=== PATIENT | male | born 1960 | race African-American/Black ===

== ENCOUNTER 2017-01-15 11:00 | Observation (INO) ==
[2017-01-15] MEDS ORDERED: Nitroglycerin 0.4 MG TAB.SUBL SL ONE (11:09)
[2017-01-15] MEDS ORDERED: Aspirin 81 MG TAB.CHEW PO ONE (11:09)
[2017-01-15 11:27] LABS: Basophils % 0.6 %; Eosinophils # 0.1 K/mcL (0.0-0.6); Eosinophils % 2.9 %; Hematocrit 46.3 % (37.5-50.1); Hemoglobin 16.1 g/dL (12.9-16.9); Lymphocytes # 1.8 K/mcL (0.6-4.6); Lymphocytes % 56.7 %; Mean Corpuscular HGB Conc 34.8 g/dL (31.6-35.5); Mean Corpuscular Hemoglobin 30.3 pg (28.0-33.3); Mean Platelet Volume 10.7 fL (9.4-12.4); Monocytes # 0.4 K/mcL (0.0-1.3); Monocytes % 11.2 %; Neutrophils # 0.9 K/mcL (1.6-8.9); Platelet Count 196 K/mcL (140-400); Red Blood Count 5.32 M/mcL (4.19-5.50); Red Cell Distribution Width 13.5 % (11.5-14.5); Segmented Neutrophils % 28.6 %
[2017-01-15 11:40] LABS: BUN/Creatinine Ratio 12 (6-26); Blood Urea Nitrogen 12 mg/dL (8-26); Calcium 9.4 mg/dL (8.6-10.8); Carbon Dioxide 25 mEq/L (19-29); Chloride 106 mEq/L (98-109); Glucose 79 mg/dL (70-99); Osmolality,Calculated 287 (280-300); Potassium 3.9 mEq/L (3.5-4.5); Sodium 139 mEq/L (136-145); eGFR For African Americans > 60 (> 60); eGFR For Non-African Americans > 60 (> 60)
[2017-01-15 11:42] LABS: INR 1.2; Prothrombin Time 12.9 Seconds (9.4-12.1)
[2017-01-15 11:45] LABS: Activated Partial Thrombo Time 26.1 Seconds (26.0-36.0)
[2017-01-15] MEDS ORDERED: *HR* Morphine 2 MG/ML SYRINGE IVP ONE (11:53)
--- NOTE | 2017-01-15 11:53 | Emergency Department Note ---
Disposition Clinical Impression: Chest pain Qualifiers: Chest pain type: unspecified Qualified Code(s): R07.9 - Chest pain, unspecified Disposition: Admitted As Inpatient Condition: Good Referrals: Zach Thorne MD [Primary Care Provider] - Forms: ED Satisfaction Letter Time of Disposition: 11:58 General Adult HPI - General Chief complaint: ED Chest Pain Stated complaint: Chest Pain Time Seen by Provider: 01/15/17 11:02 Source: patient Limitations: no limitations Nursing Notes Reviewed: Yes Vital Signs Reviewed: Yes - History of Present Illness HPI Narrative: 56-year-old male presents to the emergency department complaining of chest pain. Patient states he had an episode last night that self resolved and this morning approximately one hour ago he started having substernal chest pressure and severe pain. He denies any radiation of the pain. He denies any nausea, vomiting, diaphoresis with it. He does disclose cocaine use 3 days ago. Patient has significant past medical history of high blood pressure but denies any cardiac history. He states he was admitted a few years ago for cardiac workup but does not remember ever having a stress test or an echo completed. Patient did not have anything at home to help with this. He denies being on any blood thinners or taking aspirin. Pain Scale: 6 - Related Data Previous Rx's Medication Instructions Recorded OxyCODONE/APAP 10/325 [Percocet 1 each PO Q6HR PRN #26 tablet 09/16/16 10/325 MG] Allergies Allergy/AdvReac Type Severity Reaction Status Date / Time Penicillins AdvReac See Verified 01/15/17 11:11 Comments All systems ED: reviewed and negative except as stated. Constitutional: Denies: fever, chills, weakness Eyes: Reports: as per HPI ENT ED: Reports: as per HPI Cardiovascular: Reports: chest pain. Denies: palpitations, dyspnea on exertion Respiratory: Denies: cough, dyspnea, wheezes Gastrointestinal: Denies: abdominal pain, nausea, vomiting Genitourinary: Reports: as per HPI Musculoskeletal: Reports: as per HPI Integumentary: Reports: as per HPI Neurological: Denies: numbness, paresthesias Psychiatric: Reports: as per HPI Endocrine: Reports: as per HPI Hematological/Lymphatic: Reports: as per HPI Allergic/Immunologic: Reports: as per HPI Past Medical History - Past Medical History Attestation: Yes The following information was validated with the patient. Medical history: Reports: hepatitis, hypertension, other Surgical history: Reports: appendectomy, other Psychiatric history: Reports: anxiety, bipolar, PTSD - Social History Smoking Status: Current every day smoker Smokeless Tobacco Status: No Alcohol use: Reports: occasionally Drug use: Reports: cocaine, marijuana, IV Drug Use Physical Exam - General Limitations: no limitations General appearance: alert, in no apparent distress - Head Head exam: atraumatic, normocephalic, normal inspection - Eye Eye exam: Present: normal appearance. Absent: scleral icterus, conjunctival injection - Neck Neck exam: Present: normal inspection, full ROM - Chest Chest inspection: Present: normal inspection, symmetric chest wall rise. Absent : tenderness, rash - Respiratory Respiratory exam: Present: normal lung sounds bilaterally. Absent: respiratory distress, wheezes - Cardiovascular Cardiovascular exam: Present: regular rate, normal rhythm, normal heart sounds - Abdominal Exam Abdominal exam: Present: soft, Non-Tender. Absent: distention, guarding, rebound - Extremities Exam Extremities exam: Present: normal inspection, full ROM - Neurological Exam Neurological exam: Present: alert, oriented X3 - Psychiatric Psychiatric exam: Present: normal affect, normal mood - Skin Skin exam: Present: warm, intact Course Course Narrative: 56-year-old male presenting to the emergency Department chief complaint chest pain. We will perform a chest pain rule out at this time including EKG, troponin, chest x-ray. Patient still currently having pain at this time. We will provide him with aspirin and nitroglycerin trial. Patient's alert and oriented 3 in the room with stable vital signs at this time. He agrees with this plan. - Reevaluation(s) Reevaluation #1: All patient's lab work has come back within normal limits. Patient still having pain but unable to receive second dose of nitroglycerin due to hypotension from first dose. We will provide him with 4 mg of morphine at this time for pain control. I spoke with the hospitalist Dr. Sandy who agrees to accept the patient at this time. Patient's alert and oriented 3 and her stable vital signs at the time of admission. Time: 11:57 Vital Signs Temperature 97.7 F 01/15/17 11:06 Pulse Rate 60 01/15/17 11:06 Respiratory Rate 20 01/15/17 11:06 Blood Pressure 121/81 01/15/17 11:06 O2 Sat by Pulse Oximetry 100 01/15/17 11:06 Temperature 97.7 F 01/15/17 11:06 Pulse Rate 60 01/15/17 11:45 Respiratory Rate 24 01/15/17 11:45 Blood Pressure 107/69 01/15/17 11:45 O2 Sat by Pulse Oximetry 100 01/15/17 11:45 Oxygen Delivery Oxygen Delivery Room Air Medical Decision Making - Lab Data Result diagrams: 01/15/17 11:20 01/15/17 11:20 Lab Results 01/15/17 01/15/17 01/15/17 Range/Units 11:20 11:20 11:20 WBC 3.1 L (4.3-11.1) K/mcL RBC 5.32 (4.19-5.50) M/mcL Hgb 16.1 (12.9-16.9) g/dL Hct 46.3 (37.5-50.1) % MCV 87.0 (83.0-100.0) fL MCH 30.3 (28.0-33.3) pg MCHC 34.8 (31.6-35.5) g/dL RDW 13.5 (11.5-14.5) % Plt Count 196 (140-400) K/mcL MPV 10.7 (9.4-12.4) fL Immature Gran % 0.0 (0-4) % Seg Neutrophils % 28.6 % Lymphocytes % 56.7 % Monocytes % 11.2 % Eosinophils % 2.9 % Basophils % 0.6 % Neutrophils # 0.9 L (1.6-8.9) K/mcL Lymphocytes # 1.8 (0.6-4.6) K/mcL Monocytes # 0.4 (0.0-1.3) K/mcL Eosinophils # 0.1 (0.0-0.6) K/mcL Basophils # 0.0 (0.0-0.2) K/mcL PT 12.9 H (9.4-12.1) Seconds INR 1.2 APTT 26.1 (26.0-36.0) Seconds Sodium 139 (136-145) mEq/L Potassium 3.9 (3.5-4.5) mEq/L Chloride 106 (98-109) mEq/L Carbon Dioxide 25 (19-29) mEq/L BUN 12 (8-26) mg/dL Creatinine 1.03 (0.72-1.25) mg/dL Est GFR ( Amer) > 60 (> 60) Est GFR (Non-Af Amer) > 60 (> 60) BUN/Creatinine Ratio 12 (6-26) Glucose 79 (70-99) mg/dL Calculated Osmolality 287 (280-300) Calcium 9.4 (8.6-10.8) mg/dL Troponin I (0-0.03) ng/mL 01/15/17 Range/Units 11:20 WBC (4.3-11.1) K/mcL RBC (4.19-5.50) M/mcL Hgb (12.9-16.9) g/dL Hct (37.5-50.1) % MCV (83.0-100.0) fL MCH (28.0-33.3) pg MCHC (31.6-35.5) g/dL RDW (11.5-14.5) % Plt Count (140-400) K/mcL MPV (9.4-12.4) fL Immature Gran % (0-4) % Seg Neutrophils % % Lymphocytes % % Monocytes % % Eosinophils % % Basophils % % Neutrophils # (1.6-8.9) K/mcL Lymphocytes # (0.6-4.6) K/mcL Monocytes # (0.0-1.3) K/mcL Eosinophils # (0.0-0.6) K/mcL Basophils # (0.0-0.2) K/mcL PT (9.4-12.1) Seconds INR APTT (26.0-36.0) Seconds Sodium (136-145) mEq/L Potassium (3.5-4.5) mEq/L Chloride (98-109) mEq/L Carbon Dioxide (19-29) mEq/L BUN (8-26) mg/dL Creatinine (0.72-1.25) mg/dL Est GFR ( Amer) (> 60) Est GFR (Non-Af Amer) (> 60) BUN/Creatinine Ratio (6-26) Glucose (70-99) mg/dL Calculated Osmolality (280-300) Calcium (8.6-10.8) mg/dL Troponin I 0.00 (0-0.03) ng/mL - EKG Data EKG #1 EKG attestation: Yes I reviewed and interpreted this EKG. EKG results narrative: Sinus rhythm. 60 bpm. Left atrial enlargement. Possible right ventricular delay. Left anterior fascicular block. WI interval 159, QRS 93, QTc 403. No signs of acute ST segment elevation. Peaked T waves noted in V3, V4, V5, V6. When compared to previous EKG completed on 01/13/2016 new peaked T waves noted but otherwise no changes.
--- NOTE | 2017-01-15 11:55 | Emergency Department Note ---
START Narrative - START START: I examined this patient and my medical decision-making was reviewed with the Resident Physician. I agree with the documented findings, disposition and treatment plan as described except to the extent set forth below. 56 year old male who did cocaine about 3 days ago and states that he had chest pain that started last night and again this morning and states that is is midsternal and has multiple risk facotrs for ACS. WE will start cardiopulomonary workup. Ekg shows some hyper peaked t waves although no depression or inversion. we have treated him with ASA/nitro and will admit to medicine for chest pain rule out ACS.
[2017-01-15] MEDS ORDERED: Acetaminophen 325 MG TABLET PO PRN (14:20)
[2017-01-15] MEDS ORDERED: Naloxone 0.4 MG/ML INJ IVP PRN (14:20)
[2017-01-15] MEDS ORDERED: Mag Hydrox/Al Hydrox/Simeth 30 ML UDC PO PRN (14:20)
[2017-01-15] MEDS ORDERED: Ondansetron ODT 4 MG TAB.RAPDIS SL PRN (14:20)
--- NOTE | 2017-01-15 14:26 | Internal Med History&Physical ---
Date of Encounter: 01/15/17 Time of Encounter: 14:26 Assessment and Plan (1) Chest pain Current visit: Yes Status: Acute 56/male Admitted with persistent ongoing chest pain. Left precordial/left arm radiation. Typical anginal chest pain. Plan: Admit as observation. Cycle troponin. Aspirin/Lipitor/metoprolol. Echocardiogram. If 3 troponins negative, echocardiogram within normal limit then please consider stress test. Patient will be nothing by mouth from midnight for possible stress test. I examined this patient in his assigned room and discussed plan with the patient. Patient verbalizes understanding regarding the plan. Qualifiers: Chest pain type: unspecified Qualified Code(s): R07.9 - Chest pain, unspecified (2) Hypertension Current visit: Yes Status: Acute Will restart home medication Qualifiers: Hypertension type: essential hypertension Qualified Code(s): I10 - Essential (primary) hypertension (3) Fibromyalgia Current visit: Yes Status: Acute We will restart her gabapentin which he takes from his primary care provider for fibromyalgia (4) DVT prophylaxis Current visit: Yes Status: Acute SCD Medical decision making: This patient has a moderate to severe risk of worsening in spite of being on appropriate medication due to underlying complex comorbidities. Internal Medicine - H&P: HPI Chief complaint: Chest pain Admitted From: Emergency Dept Plans for Post Hospital Care: Home History of present illness: PCP: Dr Thorne Brief past medical history: Fibromyalgia, hypertension History of present illness: Patient is ongoing pain all over his body since last 48 hours. Patient complains of worsening chest pain precordial region, radiating to the left shoulder, sharp in nature associated with movement and relieved by rest and nitroglycerin. Patient claims that the pain is radiating to his arm. The pain is consistent in nature and he feels that he is probably going to get a heart attack. This is the reason patient decided to come to the hospital for further evaluation. Patient denies shortness of breath, abdominal pain, nausea, vomiting, dizziness or diarrhea. Workup in the emergency room: Patient was evaluated in the emergency room. Basic labs were drawn. EKG was done which was unchanged from the previous one. In view of cardiac risk factor patient was suggested to get hospitalized to rule out acute coronary syndrome. Reason for hospitalization: Chest pain to rule out acute coronary syndrome. Heart score 2 Family history: Strong family history for coronary artery disease Past Med Surg Social Fam HX - Past Medical History Medical history: hepatitis, hypertension, other Psychiatric history: anxiety, bipolar, PTSD - Past Surgical History Surgical History: appendectomy, other - Social History Smoking Status: Current every day smoker Smokeless Tobacco Status: No Alcohol use: occasionally Drug use: cocaine, marijuana, IV Drug Use Internal Medicine - H&P: Meds Amitriptyline [Elavil] 25 mg PO HS 01/15/17 [History] Gabapentin [Neurontin] 300 mg PO TID 01/15/17 [History] amLODIPine [Norvasc] 5 mg PO DAILY 01/15/17 [History] 3 Allergy/AdvReac Type Severity Reaction Status Date / Time Penicillins AdvReac See Verified 01/15/17 11:11 Comments All Systems PM: A 10-system review of systems was performed and is negative for pertinent findings except as documented above in the HPI. - Constitutional Constitutional: no chills, no fever(s), no night sweats - EENT Eyes: no change in vision, no discharge, no pain, no photophobia Ears: no ear discharge, no ear pain, no tinnitus Nose, mouth and throat: no dysphagia, no nasal discharge, no neck pain, no sore throat - Cardiovascular Cardiovascular ROS IM: chest pain, diaphoresis, lightheadedness, no dyspnea, no palpitations, no syncope - Respiratory Respiratory: no cough, no dyspnea, no wheezing, no excessive phlegm production - Gastrointestinal Gastrointestinal: no abdominal pain, no diarrhea, no hematemesis, no hematochezia, no melena, no nausea, no vomiting - Musculoskeletal Musculoskeletal ROS IM: no numbness, no tingling - Integumentary Integumentary IM: no rash, no unusual bruising - Neurological Neurological ROS: no confusion, no convulsions, no focal weakness, no numbness, no tingling, no tremor(s) - Hematologic/Lymphatic Hematologic/Lymphatic: no easy bruising - Constitutional Vitals: Temp Pulse Resp BP Pulse Ox 97.7 F 50 18 135/82 99 01/15/17 14:10 01/15/17 14:10 01/15/17 14:10 01/15/17 14:10 01/15/17 14:10 General appearance: Present: A&O X 3, pleasant, no acute distress, answers questions appropriately - Head Head exam: Present: atraumatic, normocephalic - Eye Eye exam: Present: PERRL, conjuntiva pink, sclera anicteric Pupils: Present: PERRL - Neck Neck exam general surgery: Present: supple, trachea midline. Absent: lymphadenopathy - Respiratory Respiratory exam: Present: CTAB. Absent: accessory muscle use, rales, rhonchi, wheezes - Cardiovascular Cardiovascular exam: Present: RRR, +S1, +S2. Absent: diastolic murmur, gallop, rubs, systolic murmur - GI/Abdominal GI/Abdominal exam: Present: normal bowel sounds, soft, no peritoneal signs. Absent: distended, tenderness - Extremities Exam Extremities exam: Present: warm, radial pulses palpable and symmetrical. Absent : calf tenderness, cyanotic, pedal edema - Neurological Exam Neurological exam: Present: CN II-XII intact, oriented X3, no focal deficits. Absent: pronater drift, facial droop, speech deficit - Skin Skin exam: Present: dry, intact Internal Med - H&P Results - Labs CBC & Chem 7: 01/15/17 11:20 01/15/17 11:20 Labs: This was discussed with the emergency room physician.
[2017-01-15] MEDS ORDERED: *HR* Morphine 2 MG/ML SYRINGE IVP PRN (16:22)
[2017-01-15] MEDS: Gabapentin 300 MG CAPSULE PO SCH ×2 (16:32→20:33)
[2017-01-16 04:29] LABS: Basophils % 0.3 %; Eosinophils # 0.1 K/mcL (0.0-0.6); Hematocrit 44.6 % (37.5-50.1); Hemoglobin 15.3 g/dL (12.9-16.9); Lymphocytes # 1.8 K/mcL (0.6-4.6); Lymphocytes % 55.6 %; Mean Corpuscular HGB Conc 34.3 g/dL (31.6-35.5); Mean Corpuscular Volume 87.5 fL (83.0-100.0); Mean Platelet Volume 11.2 fL (9.4-12.4); Monocytes # 0.4 K/mcL (0.0-1.3); Monocytes % 11.5 %; Platelet Count 177 K/mcL (140-400); Red Cell Distribution Width 13.6 % (11.5-14.5); Segmented Neutrophils % 29.6 %
[2017-01-16 04:45] LABS: INR 1.3; Prothrombin Time 13.6 Seconds (9.4-12.1)
[2017-01-16 04:46] LABS: Alanine Aminotransferase 19 Units/L (0-55); Albumin 3.1 g/dL (3.5-5.0); Albumin/Globulin Ratio 0.9 (1.1-2.2); Alkaline Phosphatase 56 Units/L (38-126); Aspartate Amino Transferase 23 Units/L (5-34); BUN/Creatinine Ratio 16 (6-26); Bilirubin,Total 0.8 mg/dL (0.2-1.2); Blood Urea Nitrogen 15 mg/dL (8-26); Calcium 8.4 mg/dL (8.6-10.8); Carbon Dioxide 26 mEq/L (19-29); Chloride 108 mEq/L (98-109); Cholesterol 149 mg/dL (< 200); Globulin 3.5 g/dL (2.4-3.5); Glucose 106 mg/dL (70-99); HDL Cholesterol 50 mg/dL (40-59); LDL Cholesterol,Calculated 90 mg/dL (0-99); Osmolality,Calculated 289 (280-300); Potassium 3.7 mEq/L (3.5-4.5); Sodium 139 mEq/L (136-145); Total Protein 6.6 g/dL (6.0-8.3); Triglycerides 45 mg/dL (< 150); eGFR For African Americans > 60 (> 60); eGFR For Non-African Americans > 60 (> 60)
[2017-01-16 04:48] LABS: Activated Partial Thrombo Time 27.1 Seconds (26.0-36.0)
[2017-01-16] MEDS: Gabapentin 300 MG CAPSULE PO SCH (07:22)
[2017-01-16] MEDS ORDERED: *HR* Morphine 2 MG/ML SYRINGE IVP PRN (08:46)
[2017-01-16] MEDS ORDERED: amLODIPine 5 MG TABLET PO SCH (09:00)
[2017-01-16] MEDS ORDERED: Aspirin Enteric Coated 81 MG Tablet PO SCH (09:00)
[2017-01-16] MEDS ORDERED: Regadenoson 0.4 MG/5 ML SYRINGE IVP ONE (09:09)
[2017-01-16 12:37] VITALS: BP 125/77
--- NOTE | 2017-01-16 12:38 | Discharge Summary ---
Date of Encounter: 01/16/17 Time of Encounter: 12:34 - Discharge Diagnosis (1) Chest pain Priority: Primary Status: Acute Qualifiers: Chest pain type: unspecified Qualified Code(s): R07.9 - Chest pain, unspecified (2) Hypertension Priority: Secondary Status: Chronic Qualifiers: Hypertension type: essential hypertension Qualified Code(s): I10 - Essential (primary) hypertension (3) Fibromyalgia Priority: Secondary Status: Chronic - Discharge Medications Prescriptions: Omeprazole [PriLOSEC] 40 mg PO DAILY #30 cap Home Medications: Amitriptyline [Elavil] 25 mg PO HS 01/15/17 [History] Gabapentin [Neurontin] 300 mg PO TID 01/15/17 [History] amLODIPine [Norvasc] 5 mg PO DAILY 01/15/17 [History] Omeprazole [PriLOSEC] 40 mg PO DAILY #30 cap 01/16/17 [Rx] Allergies/Adverse Reactions: 3 Allergy/AdvReac Type Severity Reaction Status Date / Time Penicillins AdvReac See Verified 01/15/17 11:11 Comments Procedures/tests Complete & Pending: Procedures Performed prior 72 hours Category Date Time Status NM evelin perf SPECT multi [NM] Routine Exams 01/16/17 07:53 Taken EV echocardiogram Routine Y 01/15/17 14:22 Completed SP pharm nuclear stress Routine Y 01/16/17 07:52 Completed Date of admission: 01/15/17 12:11 Primary care physician: Zach Thorne Discharging clinician: Yael Martinez Anticipated date of discharge: 01/16/17 - Patient Status Disposition: Home, Self-Care Condition: Good Functional capacity at discharge: independent ambulation Overall status at discharge: patient is back to baseline - Discharge Instructions Instructions: Chest Pain (DC), Chronic Hypertension (DC), Low Sodium Diet (DC) Follow Up With: Zach Thorne MD [Primary Care Provider] - Forms: Work/School Release, Inpatient Work/School Release Additional Instructions: F/up with PCP in 1-2 weeks - Diet and Activity Activity: resume usual activities as tolerated Diet: low salt diet Hospital course: Mr. Zhang is a 56 year old male with the above medical problems who was admitted with retrosternal chest pain. Initial labs, EKG and chest x-ray done in the emergency room showed no acute abnormality. Serial troponins remained negative and telemetry showed no significant events. Echocardiogram showed preserved ejection fraction, mild mitral regurgitation and no wall motion abnormalities. Nuclear stress test was done which showed no evidence of ischemia or infarct. Patient has been started on PPI and currently remains asymptomatic with no recurrence of chest pain. He is otherwise medically stable for discharge with outpatient follow-up. - Time Spent with Patient Total time spent providing and/or coordinating discharge services: Greater than 30 minutes (40 min) - Constitutional Vitals: Temp Pulse Resp BP Pulse Ox 97.9 F 51 15 117/69 98 01/16/17 07:22 01/16/17 07:22 01/16/17 07:22 01/16/17 07:22 01/16/17 07:22 General appearance: Present: A&O X 3, answers questions appropriately - Respiratory Respiratory exam: Present: CTAB. Absent: accessory muscle use, rales, rhonchi, wheezes - Cardiovascular Cardiovascular exam: Present: RRR, +S1, +S2. Absent: diastolic murmur, gallop, rubs, systolic murmur
--- NOTE | 2017-01-16 17:35 | Electrocardiograph Report ---
[address] [address] Test Date: 2017-01-15 Pat Name: Arsen Zhang Department: 104 Room: [facility] Gender: M Sky Cap: AM : 1960 Requested By: Karlie Boyle Order Number: [id number] Reading MD: Jesse Pack MD Measurements Intervals [place] Rate: 60 P: 84 GA: 159 QRS: -50 QRSD: 93 T: 64 QT: 402 QTc: 403 Interpretive Statements SINUS RHYTHM LEFT ATRIAL ENLARGEMENT LEFT ANTERIOR FASCICULAR BLOCK Electronically Signed On 01-16-2017 17:33:53 EST by Jesse Pack MD
[2017-01-16] MEDS ORDERED: *HR* Heparin 5,000 UNIT/ML VIAL SQ SCH (18:00)
== END 2017-01-16 13:41 | disposition home or self-care (01) ==
LOC: EMEROO 11:00 → 2ANU 11:00 → SUATTDRO 12:11 → 2ANU 13:50
PROVIDERS: ADMIT Internal Medicine; ATTEND Internal Medicine